=== PATIENT | female | born 1940 | race Caucasian/White ===

== ENCOUNTER 2018-03-06 12:02 | Inpatient (IN) | payer OTHER ==
[2018-03-06] MEDS ORDERED: DIAZEPAM 5 MG TAB PO ONE (12:03)
[2018-03-06] MEDS ORDERED: ASPIRIN EC 325 MG TAB PO ONE (12:03)
[2018-03-06] MEDS ORDERED: FAMOTIDINE 20 MG TAB PO ONE (12:03)
[2018-03-06] MEDS ORDERED: NS 1,000 ML IV ONE (12:03)
[2018-03-06] MEDS ORDERED: diphenhydrAMINE 25 MG CAP PO ONE (12:03)
[2018-03-06 12:33] LABS: PLATELET COUNT 197 10^3/uL (150-400)
[2018-03-06 12:46] LABS: INR 1.09 (0.83-1.16); PROTIME(PATIENT) 14.3 SEC (12.0-15.0)
[2018-03-06] MEDS ORDERED: LIDOCAINE 1% 300 MG/30 ML SDV ONE (13:53)
[2018-03-06] MEDS ORDERED: VERAPAMIL 5 MG/2 ML VIAL ONE (13:53)
[2018-03-06] MEDS ORDERED: IOPAMIDOL (ISOVUE-370) 150 ML BTL IV ONE ×3 (13:53→15:49)
[2018-03-06] MEDS ORDERED: HEPARIN 10,000 UNIT/10 ML MDV (1,000 UNIT/ML) ONE (13:53)
[2018-03-06] MEDS ORDERED: MIDAZOLAM 2 MG/2 ML VIAL ONE ×2 (13:54→15:51)
[2018-03-06] MEDS ORDERED: fentaNYL 100 MCG/2 ML INJ ONE ×2 (13:54→15:51)
--- NOTE | 2018-03-06 14:35 | PDHPUP ---
History & Physical Update H&P update statement: This history and physical update is based on an assessment of the patient which was completed after admission or registration (within 24 hours), but prior to the surgery/procedure. H&P update: H&P reviewed & patient examined, changes noted (abnormal stress test high risk)
--- NOTE | 2018-03-06 14:38 | PDPROPOC ---
Sedation Plan of Care Sedation Plan of Care: vital signs stable, mental status noted, patient educated of risks, benefits, alternatives, patient can tolerate sedation ASA Classification: ASA 3 Planned drugs: fentanyl, midazolam Mallampati Score: Class 3 Mallampati Reference Image: Patient passed 3-3-2 rule?: Yes
--- NOTE | 2018-03-06 14:43 | PDDXCAT ---
Diagnostic Cath Note - . Date: 03/06/18 Clinic Supervisor: Francisco Indication: CCC Class III and IV angina on medical treatment, High-risk criteria on noninvasive testing (choose option below) High-risk criteria on non-invasive testing: high-risk treadmill score (score<=- 11) - Procedure Access: right groin Procedure: left heart catheterization, coronary angiography, left ventriculogram , other (right iliac anriography) - Materials Left Heart Cath size: 5F Left Heart Cath materials: JL3.5 - Findings-Left Heart Catheterization LM: short vessel, There may be seperate ostia for the circumflex/Ramus system and LAD. LAD: only one selective angiographic picture of the LAD. The selective picture revealed a 90% ostial stenosis of the LAD and severe and diffuse calcific disease with 80% stenosis in the mid LAD. CYNTHIA III flow with selective angiography. No dissection or thrombus. LCX: 2.75mm in size. THere is a 50% stenosis from the takeoff of the left coronary cusp. There is severe disease. 90% obstruction from the ostial takeoff at the beta branch bifurcation. There is a calcific 80% obstruction of the left circumflex proximal to the mid level bifurcation. RCA: 2.5mm in size and dominant vessel. Gives rise to the PD and . There is 99% obstruction at the ostial takeoff. There is a second lesion with 80% stenosis. Ramus: 1.5mm in size. There is ostial stenosis near the takeoff from the left coronary cusp. CYNTHIA III flow. EDP: 28mmHg LVEF: 65% Wall motion: Sigmoid shaped septum with probable basal septal hypertrophy of the elderly. There is no evidence of significant mitral regurgitation on pressurized injection with the MEDRAD. No evidence of gradient across the aortic valve. No evidence of aortic stenosis upon pullback across the aortic valve. The pulse pressure in the aorta was extremely high at 104mmHg. There was no evidence of aortic aneurysm or dissection, there was no significant aortic regurgitation. - Findings-Right Heart Catheterization AO: 127/43/77 Estimated blood loss: other (<300ml) Closure method: TR Band Assessment: The patient has crticial three vessel coronary artery disease as detailed above. The EF is preserved at 65%. There is asymmetrical basal septal hypertophy without evidence of out flow track obstruction or a gradient across the aortic valve. There is no significant mitral regurgitation. These findings were discussed with Dr. Charly Case and Dr. Charly Vergara who both agreed that it is most appropriate to procced with urgent bypass surgery which is planned for tomorrow morning. The SIMMONS looks particuarly small but was not selectively injected and there is 80% proximal right common Iliac obstruction on iliac angiography. Plan: Proceed with echocardiogram this evening and fluid resuscitation to try to flush out any contrast from the kidney system. The patient will have bypass surgery tomorrow morning. Intervention: NONE
--- NOTE | 2018-03-06 15:18 | CPEKG ---
Test Reason : OPEN Blood Pressure : / mmHG Vent. Rate : 076 BPM Atrial Rate : 076 BPM P-R Int : 150 ms QRS Dur : 088 ms QT Int : 391 ms P-R-T Axes : 099 072 -18 degrees QTc Int : 440 ms Sinus rhythm Confirmed by Alexandro Mehta ([id number]) on 03/06/2018 3:17:58 PM Referred By: Confirmed By:Alexandro Mehta
--- NOTE | 2018-03-06 17:31 | PDSURGCRDT ---
CardioThoracic Surgery Note - Assessment and Plan (1) Coronary artery disease Plan: I was asked to see this pleasant 78 year old woman following her heart cath today. I met with her briefly and her family as well. She has unstable progressive angina and cath shows critical 3 vessel disease. Plan is for CABG in AM. Risks benefits and alternatives were reviewed and she agrees to proceed. - Objective Objective: Laboratory Results 03/06/18 12:15 03/06/18 12:15
[2018-03-06] MEDS ORDERED: OXYCODONE/APAP 5/325 TAB PO PRN (17:39)
[2018-03-06] MEDS ORDERED: NITROGLYCERIN 0.4 MG BTL SL PRN (17:39)
[2018-03-06] MEDS ORDERED: ONDANSETRON 4 MG/2 ML VIAL IVP PRN (17:39)
[2018-03-06] MEDS ORDERED: ATROPINE SULFATE 1 MG/10 ML SYR IVP PRN (17:39)
[2018-03-06] MEDS ORDERED: NS 1,000 ML IV SCH (17:45)
--- NOTE | 2018-03-06 18:04 | ECHO ---
[email or web address] [address] Main: [phone] Fax: Transthoracic Echocardiogram Name: DEUCE SULLIVAN MR#: [id number] Study Date: 03/06/2018 Study Time: 05:05 PM Date of : 1940 Age: 78 year(s) Height: ( ) Weight: ( ) BSA: Gender: Female Examination: Echo Indication: pre op Image Quality: Adequate Contrast: Requested by: Isra Singh BP: 147 mmHg/62 mmHg Heart Rate: Rhythm: Indication: pre op Procedure Staff Nuisance Animal Damage Control Agent: Olnea Garcia RDCS Reading Physician: Isra Singh MD Requesting Provider: Conclusions: Normal size left ventricle. No LV hypertrophy. Normal global systolic LV function. EF is 62 %. Normal diastolic LV function. Normal size right ventricle. Normal RV function. The left atrium is normal in size. The right atrium is normal in size. The mitral valve is normal in appearance and function. Mild mitral valve regurgitation is present. No mitral stenosis is present. The aortic valve is tri-leaflet. Aortic sclerosis is present. Trivial aortic valve regurgitation. No aortic valve stenosis is present. The tricuspid valve is normal in appearance and function. Mild tricuspid regurgitation is present. The pulmonary artery pressure is normal. Right ventricular systolic pressure measures 15mmHg. The pulmonic valve is normal in appearance and function. Trivial pulmonic valve regurgitation. The aorta is normal. Normal size aortic root measuring 2.2 cm. Normal size ascending aorta measuring 2.1 cm. The IVC is normal sized. No pericardial effusion. No pleural effusion. Supine post cath. No evidence of significant valvular heart disease. Sigmoid shaped septum of the elderly without Patient: DEUCE SULLIVAN Study Date: 03/06/2018 Page 1 of 3 05:05 PM evidence of obstruction. Measurements: Chambers Valvular Assessment AV/MV Valvular Assessment TV/PV Normal Normal Normal Name Value Range Name Value Range Name Value Range Ao Delaney (2D): 2.2 cm (1.4 cm-2.6 AV Vmax: 1.66 m/s (1 m/s-1.7 TR Vmax: 1.62 mm/s ( - ) cm) m/s) TR PGmax: 10 mmHg ( - ) IVSd (2D): 1.0 cm (0.6 cm-1.1 AV maxP mmHg ( - ) syst. PAP: 15 mmHg ( - ) cm) AV meanP mmHg ( - ) PV Vmax: 0.91 m/s (0.6 m/s-0.9 LVDd (2D): 3.6 cm (3.9 cm-5.3 MANE (VTI): 1.2 cm ( - ) m/s) cm) MV E Vmax: 0.52 m/s ( - ) PV PGmax: 3 mmHg ( - ) LVDs (2D): 2.4 cm (2.1 cm-4 MV A Vmax: 0.76 m/s ( - ) cm) MV E/A: 0.68 ( - ) LVPWd (2D): 1.0 cm ( - ) MV PHT: 0.083 s ( - ) LVOTd 1.7 cm 1.7 cm mm MVA (PHT): 2.7 s ( - ) LVEF (2D): 62 (>=54 %) RVDd(2D): 2.1 cm (1.9 cm-3.8 cmmm) Continued Measurements: Chambers Valvular Assessment AV/MV Valvular Assessment TV/PV Name Value Name Value Name Value LADs: 2.3 cm MV DecTime: 264 m/s CVP (est.): 5 mmHg LADs Lon.9 cm MV E' Septal: 0.05 m/s LA Area: 13.0 cm2 MV E/E' Septal: 10.60 LA Volume: 32 ml MV E/E' Lateral: 9.20 RA Area: 12.2 cm2 Additional Vessels Name Value Ao Ascendin.1 cm Findings: Left Ventricle: Normal size left ventricle. No LV hypertrophy. Normal global systolic LV function. EF is 62 %. Normal diastolic LV function. Right Ventricle: Normal size right ventricle. Normal RV function. Left Atrium: The left atrium is normal in size. Right Atrium: The right atrium is normal in size. Mitral Valve: The mitral valve is normal in appearance and function. Mild mitral valve regurgitation is present. No mitral stenosis is present. Aortic Valve: The aortic valve is tri-leaflet. Aortic sclerosis is present. Trivial aortic valve regurgitation. No aortic valve stenosis is present. Tricuspid Valve: The tricuspid valve is normal in appearance and function. Mild tricuspid regurgitation is present. The pulmonary artery pressure is normal. Right ventricular systolic pressure measures 15mmHg. Pulmonic Valve: The pulmonic valve is normal in appearance and function. Trivial pulmonic valve regurgitation. Aorta: The aorta is normal. Normal size aortic root measuring 2.2 cm. Normal size ascending aorta measuring 2.1 cm. IVC: Patient: DEUCE SULLIVAN Study Date: 03/06/2018 Page 2 of 3 05:05 PM The IVC is normal sized. Pericardium: No pericardial effusion. No pleural effusion. Exam Comments: Supine post cath. (No Signature Object) Patient: DEUCE SULLIVAN Study Date: 03/06/2018 Page 3 of 3 05:05 PM [id number]
[2018-03-06] MEDS ORDERED: CHLORHEXIDINE GLUC HIBICLENS 118 ML BTL TP SCH (21:00)
[2018-03-06] MEDS: SENNOSIDES/DOCUSATE SODIUM TAB PO SCH (22:10)
[2018-03-06] MEDS: ATORVASTATIN CALCIUM 10 MG TAB PO SCH (22:11)
[2018-03-06] MEDS: ASPIRIN 81 MG CHEWABLE TAB PO SCH (22:11)
[2018-03-06] MEDS: MUPIROCIN 2% 22 GM OINT NS SCH (22:16)
[2018-03-07] MEDS: HYDROCODONE/APAP 5/325 TAB PO PRN (04:27)
[2018-03-07] MEDS: LEVOTHYROXINE 88 MCG TAB PO SCH (04:28)
[2018-03-07] MEDS ORDERED: niCARdipine/NACL 200 ML IV ONE (06:00)
[2018-03-07] MEDS ORDERED: DOBUTamine/DEXTROSE 250 ML IV ONE (06:00)
[2018-03-07] MEDS ORDERED: INSULIN REGULAR HUMAN 100 UNIT in NS 100 ML IV ONE (06:00)
[2018-03-07] MEDS ORDERED: VERAPAMIL 5 MG, NITROGLYCERIN 2.5 MG, HEPARIN 500 UNIT, SODIUM BICARBONATE 0.2 MEQ in L... MISC ONE (06:00)
[2018-03-07] MEDS ORDERED: AMINOCAPROIC ACID 5 GM/20 ML VIAL IV ONE (06:00)
[2018-03-07] MEDS ORDERED: CARDIOPLEGIC SOLUTION 1,052.8 ML PF ONE (06:00)
[2018-03-07] MEDS ORDERED: ceFAZolin 2 GM/DEXTROSE 100 ML IV ONE (06:00)
[2018-03-07] MEDS ORDERED: PHENYLEPHRINE HCL 50 MG in NS 250 ML IV ONE (06:00)
[2018-03-07] MEDS ORDERED: MANNITOL 25% 12.5 GM/50 ML VIAL IVP ONE (06:00)
[2018-03-07] MEDS ORDERED: CITRATE DEXTROSE SOLN 500 ML BAG MISC ONE (06:00)
[2018-03-07] MEDS ORDERED: LR 1,000 ML IV ONE (06:09)
--- NOTE | 2018-03-07 06:10 | PDMN ---
Medical Necessity Medical necessity: MCG: S290 CABG ( pend) 4 days
[2018-03-07] MEDS ORDERED: PROTAMINE SULFATE 50 MG/5 ML VIAL IVP ONE (06:28)
[2018-03-07] MEDS ORDERED: MILRINONE/DEXTROSE/100 ML BAG IV ONE (06:28)
[2018-03-07] MEDS ORDERED: CALCIUM CHLORIDE 1 GM/10 ML INJ ONE ×3 (06:28→06:30)
[2018-03-07] MEDS ORDERED: HEPARIN 10,000 UNIT/10 ML MDV (1,000 UNIT/ML) ONE ×2 (06:29→06:31)
[2018-03-07] MEDS ORDERED: DOPamine/DEXTROSE 400 MG/250 ML BAG IV ONE ×2 (06:29→13:07)
[2018-03-07] MEDS ORDERED: AMIODARONE HCL 150 MG/3 ML VIAL ONE ×2 (06:29→06:31)
[2018-03-07] MEDS ORDERED: niCARdipine/NACL/200 ML BAG IV ONE (06:29)
[2018-03-07] MEDS ORDERED: NA BICARBONATE 50 MEQ/50 ML VIAL ONE (06:29)
[2018-03-07] MEDS ORDERED: LIDOCAINE 2% 100 MG/5 ML SYR ONE ×2 (06:30→07:27)
[2018-03-07] MEDS ORDERED: ALBUMIN 5% 250 ML BOTTLE IV ONE ×2 (06:30→10:43)
[2018-03-07] MEDS ORDERED: ADENOSINE 6 MG/2 ML VIAL ONE (06:30)
[2018-03-07] MEDS ORDERED: NITROGLYCERIN/D5W 50 MG/250 ML BOTTLE IV ONE (06:30)
[2018-03-07] MEDS ORDERED: ceFAZolin 1 GM VIAL ONE (06:30)
[2018-03-07] MEDS ORDERED: methylPREDNISolone SOD SUCC 1 GM/8 ML VIAL ONE (06:31)
[2018-03-07] MEDS ORDERED: MAGNESIUM SULFATE 1 GM/2 ML VIAL ONE (06:31)
[2018-03-07] MEDS ORDERED: CITRATE DEXTROSE SOLN 500 ML BAG ONE (06:31)
[2018-03-07] MEDS: MUPIROCIN 2% 22 GM OINT NS SCH ×2 (06:39→21:32)
[2018-03-07] MEDS ORDERED: MIDAZOLAM 2 MG/2 ML VIAL IVP ONE (06:53)
[2018-03-07] MEDS ORDERED: PAPAVERINE HCL 60 MG/2 ML SDV ONE (06:55)
--- NOTE | 2018-03-07 07:01 | PDANEPAE ---
ANE History of Present Illness 3v CAD s/f CABG ANE Past Medical History - Cardiovascular History Hx Coronary Artery / Peripheral Vascular Disease: Yes - Pulmonary History Hx Oxygen in Use at Home: No Hx Sleep Apnea: No Sleep Apnea Screening Result - Last Documented: Negative - Endocrine History Hx Diabetes: No ANE Review of Systems Review of Systems: - Exercise capacity Exercise capacity: >=4 METS ANE Patient History - Allergies Allergies/Adverse Reactions: No Known Allergies Allergy (Verified 03/06/18 13:22) - Home Medications Home medications: home medication list seen and reviewed Home Medications: Aspirin [Aspirin 81mg (*)] 162 mg PO HS 03/06/18 [Last Taken 03/05/18] Atorvastatin Calcium [Lipitor 10 mg (*)] 10 mg PO HS 03/06/18 [Last Taken ] Levothyroxine [Synthroid 88 mcg (*)] 88 mcg PO DAILY06 03/06/18 [Last Taken ] Tetrahydrozoline 0.05% [Visine (*)] 1 drop EACHEYE DAILY 03/06/18 [Last Taken Unknown] - NPO status NPO Status: no food or drink >8 hours NPO Since - Liquids (Date): 03/07/18 NPO Since - Liquids (Time): 00:00 NPO Since - Solids (Date): 03/07/18 NPO Since - Solids (Time): 00:00 - Anes Hx Anes Hx: no prior problems - Smoking Hx Smoking Status: Never smoked - Alcohol Use Alcohol Use: None ANE Labs/Vital Signs - Labs Result Diagrams: 03/06/18 12:15 03/07/18 04:30 - Vital Signs Blood Pressure: 130/47 Heart Rate: 69 Respiratory Rate: 14 O2 Sat (%): 94 Height: 152.4 cm Weight: 53.479 kg ANE Physical Exam - Airway Neck exam: FROM Mallampati Score: Class 2 Mouth exam: normal dental/mouth exam - Pulmonary Pulmonary: no respiratory distress - Cardiovascular Cardiovascular: regular rate and rhythym - ASA Status ASA Status: III ANE Anesthesia Plan Anesthesia Plan: general endotracheal anesthesia Lines/Monitors: arterial line, central line, JESUS ALBERTO
[2018-03-07] MEDS ORDERED: MIDAZOLAM 2 MG/2 ML VIAL ONE ×2 (07:07→07:21)
[2018-03-07] MEDS ORDERED: ROCURONIUM 100 MG/10 ML VIAL ONE (07:21)
[2018-03-07] MEDS ORDERED: fentaNYL 250 MCG/5 ML INJ ONE (07:21)
[2018-03-07] MEDS ORDERED: REMIFENTANIL HCL 1 MG VIAL ONE (07:21)
[2018-03-07] MEDS ORDERED: PROPOFOL/EMULSION 500 MG/50 ML BOTTLE IV ONE (07:21)
[2018-03-07] MEDS ORDERED: PHENYLEPHRINE HCL 100 MCG/ML SYR ONE (07:22)
[2018-03-07] MEDS ORDERED: DEXAMETHASONE 4 MG/ML VIAL ONE ×2 (07:22)
[2018-03-07] MEDS ORDERED: ONDANSETRON 4 MG/2 ML VIAL ONE (07:22)
[2018-03-07] MEDS ORDERED: ePHEDrine SULFATE 25 MG/5 ML SYR ONE (07:22)
--- NOTE | 2018-03-07 12:22 | ASMTCMCOM ---
CM Note CM Note Notes: 03/07/2018 Case Management Note Pt admitted after cath procedure for planned open heart procedure today. Pt transferred from 2W to ICU after surgery. Case Management d/c needs are to be determined. Case Management will follow. Date Signed: 03/07/2018 12:21 PM Electronically Signed By:Sindi Velasquez RN
[2018-03-07] MEDS ORDERED: POLYETHYLENE GLYCOL 3350 17 GM PKT PO PRN (12:32)
[2018-03-07] MEDS ORDERED: ACETAMINOPHEN 650 MG SUPP PR PRN (12:32)
[2018-03-07] MEDS ORDERED: SODIUM CL NASAL 45 ML BTL EACHNARE PRN (12:32)
[2018-03-07] MEDS ORDERED: PANTOPRAZOLE SODIUM 40 MG VIAL IVP ONE (12:32)
[2018-03-07] MEDS ORDERED: MAGNESIUM HYDROXIDE 30 ML UDCUP PO PRN (12:32)
[2018-03-07] MEDS ORDERED: BISACODYL 10 MG SUPP PR PRN (12:32)
[2018-03-07] MEDS ORDERED: CEPACOL LOZENGE PO PRN (12:32)
[2018-03-07] MEDS ORDERED: ALBUMIN 5% 250 ML IV PRN (12:32)
[2018-03-07] MEDS ORDERED: D50W 25 GM/50 ML SYR IVP PRN (12:32)
[2018-03-07] MEDS ORDERED: ACETAMINOPHEN 325 MG TAB PO PRN (12:32)
[2018-03-07] MEDS ORDERED: MEPERIDINE 25 MG/0.5 ML AMP IVP PRN (12:32)
[2018-03-07] MEDS ORDERED: LACTULOSE 20 GM/30 ML UDCUP PO PRN (12:32)
[2018-03-07] MEDS ORDERED: NS 1,000 ML IV SCH (12:45)
[2018-03-07] MEDS ORDERED: INSULIN REGULAR HUMAN 100 UNIT in NS 100 ML IV SCH (13:00)
[2018-03-07] MEDS: TETRAHYDROZOLINE 0.05% 15 ML OPHT.BTL EACHEYE SCH (13:33)
[2018-03-07] MEDS: ceFAZolin 2 GM/DEXTROSE 100 ML IV SCH ×2 (13:38→21:34)
[2018-03-07] MEDS: POTASSIUM Cl (KCl) 50 ML IV PRN ×3 (15:12→17:35)
--- NOTE | 2018-03-07 16:42 | CPEKG ---
Test Reason : OPEN Blood Pressure : / mmHG Vent. Rate : 059 BPM Atrial Rate : 059 BPM P-R Int : 178 ms QRS Dur : 091 ms QT Int : 513 ms P-R-T Axes : 079 071 -11 degrees QTc Int : 509 ms Sinus rhythm Borderline T abnormalities, inferior leads Borderline ST elevation, inferior leads Prolonged QT interval Confirmed by Alexandro Mehta ([id number]) on 03/07/2018 4:42:28 PM Referred By: Confirmed By:Alexandro Mehta
--- NOTE | 2018-03-07 17:11 | GCON ---
PULMONARY/CRITICAL CARE CONSULTATION DATE OF CONSULTATION: 03/07/2018 REFERRING PHYSICIAN: Shahid Vergara MD REASON FOR CONSULTATION: Evaluation and management of anemia, hyperglycemia and hypernatremia. HISTORY OF PRESENT ILLNESS: The patient is a 78-year-old woman who had some stable chronic chest tig htness, which prompted a treadmill test which was abnormal. This led to a heart catheterization, whi ch showed critical 3 vessel disease with an ejection fraction of 65%. She was referred to Dr. Vergara , who performed 3 vessel coronary artery bypass grafting today. Her intraoperative course was unrema rkable. She was returned to the intensive care unit intubated. PAST MEDICAL HISTORY: Significant for hypothyroidism, osteoporosis, vitiligo and bilateral carotid a rtery calcification. MEDICATIONS: At the time of admission include atorvastatin and levothyroxine. ALLERGIES: None. SOCIAL HISTORY: The patient has never smoked. She is . FAMILY HISTORY: Positive for colon cancer. REVIEW OF SYSTEMS: Unobtainable, as the patient is still intubated. PHYSICAL EXAMINATION: GENERAL: The patient is intubated and sedated. She is minimally arousable. VITAL SIGNS: Blood pressure is 137/40 with a heart rate of 69. She is afebrile. Oxygen saturations are 100% on 40% oxygen. HEENT: Normocephalic and atraumatic. No icterus. NECK: No JVD. Trachea is midline. CHEST: Clear to auscultation. CARDIAC: Regular rate and rhythm without murmur. ABDO MEN: Soft, nontender. Bowel sounds are present. EXTREMITIES: No clubbing, cyanosis, or edema. LABORATORY: Sodium is 149, potassium is 3.2, glucose is 136, down from 154. Hemoglobin is 9.5, down from 13.5 preoperatively. INR is 1.1. An arterial blood gas shows a pH of 7.36 with a pO2 of 102, a CO2 of 43 and a bicarbonate of 25 on 50% oxygen. A chest x-ray shows mild pulmonary edema. Endotr acheal tube is appropriately placed. Images reviewed by me. ASSESSMENT: 1. Status post coronary artery bypass graft x3 for exertional angina. The patient has a preserved l eft ventricular ejection fraction. Her intraoperative course was unremarkable. 2. Anemia. The patient has postoperative anemia as expected. Likely related to dilution and intrao perative blood loss. She does not have any signs of significant active bleeding currently. 3. Hypernatremia. This is new since surgery since her preoperative labs this morning and likely rel ated to fluid replacement intraoperatively. 4. Hypokalemia. This is mild. 5. Hyperglycemia. The patient has mild hyperglycemia. She does not have a history of diabetes. RECOMMENDATIONS: 1. Follow hemoglobin and follow for signs of active bleeding. 2. Replace potassium. 3. Follow sodium. 4. IV insulin for hyperglycemia to try to optimize glucose control. 5. Extubate once the patient is more awake and alert and able to protect her airway. /[id number]/MODL
[2018-03-07] MEDS ORDERED: ALBUMIN 5% 250 ML IV ONE (17:30)
[2018-03-07] MEDS: fentaNYL 100 MCG/2 ML INJ IVP PRN ×2 (19:10→20:13)
[2018-03-07] MEDS: DEXMEDETOMIDINE HCL 400 MCG in NS 100 ML IV SCH (21:27)
[2018-03-07] MEDS: SENNOSIDES/DOCUSATE SODIUM TAB PO SCH (22:17)
[2018-03-08] MEDS: DEXMEDETOMIDINE HCL 400 MCG in NS 100 ML IV SCH (02:09)
[2018-03-08] MEDS: ceFAZolin 2 GM/DEXTROSE 100 ML IV SCH ×3 (05:00→22:50)
[2018-03-08 05:19] LABS: PLATELET COUNT 68 10^3/uL (150-400)
[2018-03-08] MEDS: ONDANSETRON 4 MG/2 ML VIAL IVP PRN (06:25)
[2018-03-08] MEDS: METOCLOPRAMIDE 10 MG/2 ML VIAL IVP PRN (06:25)
--- NOTE | 2018-03-08 07:32 | SOAPPROG ---
SOAP Progress Note Assessment/Plan: Assessment/Plan: POD #1: CABGx3 (SIMMONS-LAD, SVG-OM1, SVG-PDA), EVH bilateral legs, open GSV right thigh CAD s/p CABGx3: dopamine @ 2 to titrate MAP>65, continue amiodarone, start BB when weaned from dopa Acute hypoxic respiratory insufficiency: required multiple veaning attempts overnight, extubated 03/08 Acute blood loss anemia with thrombocytopenia: 8.6/25.2, as expected, monitor Leukocytosis: 12.4, as expected, monitor Hyperchloremic hypernatremia: Na 149, Cl 118, fluid restriction, continue daily labs & monitor Aortic sclerosis: mild per ECHO, monitor Bilateral carotid artery stenosis: avoid hypotension Hypothyroidism: on Synthroid, continue Disposition: expect transfer out of ICU tomorrow, wean off dopamine today, fluid restriction, recheck BMP at 1400, NPO until VSS DVT prophylaxis: SCDs, no heparin Arterial Line: yes, need for ongoing management CVL: yes, need for ongoing management Chest tubes: 60/240/120 - keep in for now Wires: keep in for now 03/08/18 08:16 Subjective: Extubated at 0600 today after multiple attempts overnight. Still requiring dopamine @ 2. She feels "fair" with some back aching. Left chest tube site oozed overnight. Objective: General: NAD, sitting upright HEENT: CVL IJ, dry MM Resp: nasal cannula oxygen, weak cough, no wheezes Cardiac: pericardial rub, NSR, no m/g, no edema GI: soft, nt, nd : medellin Extremities: bilateral neena wraps Incisions: sternum - clean, dry, intact; right thigh - clean, dry, intact Chest tubes - 60/240/120 red UOP - 895/515 Vital Signs Temp Pulse Resp BP Pulse Ox 36.8 C 83 18 141/37 H 99 03/08/18 07:00 03/08/18 07:00 03/08/18 07:00 03/08/18 07:00 03/08/18 07:00 Laboratory Results 03/08/18 05:05 03/08/18 05:05 03/07/18 03/08/18 03/09/18 05:59 05:59 05:59 Intake Total 1150 2316.8 Output Total 1625 1830 Balance -475 486.8 PT 14.3 SEC (12.0-15.0) 03/06/18 12:15 INR 1.09 (0.83-1.16) 03/06/18 12:15 ICD10 Worksheet Patient Problems: Problems Problem Status Onset Acute blood loss anemia Acute Coronary artery disease Acute S/P CABG x 3 Acute ~03/07/18
[2018-03-08] MEDS: LEVOTHYROXINE 88 MCG TAB PO SCH (07:38)
[2018-03-08] MEDS: MUPIROCIN 2% 22 GM OINT NS SCH ×2 (08:35→21:35)
[2018-03-08] MEDS ORDERED: SENNOSIDES/DOCUSATE SODIUM TAB PO PRN (09:00)
[2018-03-08] MEDS: HYDROCODONE/APAP 5/325 TAB PO PRN ×4 (09:53→22:36)
[2018-03-08] MEDS: PANTOPRAZOLE SODIUM 40 MG TAB PO SCH (09:54)
[2018-03-08] MEDS: TETRAHYDROZOLINE 0.05% 15 ML OPHT.BTL EACHEYE SCH (11:39)
--- NOTE | 2018-03-08 13:06 | POSTANESTH ---
Post Anesthetic Evaluation Cardiovascular Status: Normal, Stable, Similar to Pre-Op Cond Respiratory Status: Similar to Pre-op Cond., Tx Decrease in SpO2 Level of Consciousness/Mental Status: Can Participate in Eval, Mildly Sleepy, Arousable Pain Control: Adequate, Prn Tx Ordered Nausea/Vomiting Control: Adequate, Prn Tx Ordered Complications Possibly Related to Anesthesia: None Noted
[2018-03-08] MEDS: traMADol 50 MG TAB PO PRN ×2 (13:12→20:20)
--- NOTE | 2018-03-08 13:13 | ASMTCMCOM ---
CM Note CM Note Notes: Patient is POD #1 CABG x3. She is stable and recovering well. PT/OT are recommending home independent or home w home care. CM will assess closer to d/c date. Patient lives with daughter and has many supportive family members. I ordered a hospital bed from [facility] (fax [phone]); the hard copy of the order is in patient's chart. Case Management will follow. Date Signed: 03/08/2018 12:48 PM Electronically Signed By:Fide Oviedo RN
--- NOTE | 2018-03-08 15:30 | PDINTPN ---
Pigskin Trimmer Progress Note Assessment/Plan: Assessment: S/P CABG x 3 Anemia: Likely due to acute perioperative bleeding. Stable over the last 24 hr. Weaned off dopamine Hypernatremia: Hyperchloremic. New onset after surgery. Improved a bit from this morning Hyperglycemia: Improved with insulin Plan: Follow hemoglobin. Increase activity. Advance diet as tolerated 03/08/18 15:42 Subjective: Still feels fairly weak, was able sitting in a chair. Poor appetite. Pain fairly well controlled. Objective: Vital Signs Temp Pulse Resp BP Pulse Ox 36.8 C 78 18 122/38 H 98 03/08/18 07:00 03/08/18 11:00 03/08/18 11:00 03/08/18 11:00 03/08/18 11:00 Laboratory Results 03/08/18 05:05 03/08/18 13:00 03/07/18 03/08/18 03/09/18 05:59 05:59 05:59 Intake Total 1150 2316.8 240 Output Total 1625 1830 315 Balance -475 486.8 -75 PT 14.3 SEC (12.0-15.0) 03/06/18 12:15 INR 1.09 (0.83-1.16) 03/06/18 12:15 Physical Exam - Physical Exam General Appearance: alert, no apparent distress EENT: normal ENT inspection Neck: normal inspection Respiratory: lungs clear, normal breath sounds Cardiac/Chest: regular rate, rhythm, edema, friction rub Abdomen: normal bowel sounds, non-tender Skin: normal color, warm/dry Extremities: normal inspection Neuro/Psych: alert, normal mood/affect, oriented x 3 ICD10 Worksheet Patient Problems: Problems Problem Status Onset Acute blood loss anemia Acute Coronary artery disease Acute S/P CABG x 3 Acute ~03/07/18
[2018-03-08] MEDS: LIDOCAINE 4%/MENTHOL 1% PATCH TD SCH (16:17)
[2018-03-08] MEDS: METOPROLOL TARTRATE 25 MG TAB PO SCH (20:20)
[2018-03-08] MEDS ORDERED: ASPIRIN 81 MG CHEWABLE TAB ONE ×2 (20:23→20:26)
[2018-03-08] MEDS: PATCH REMOVAL 1 EA PATCH TD SCH (21:35)
[2018-03-08] MEDS: ASPIRIN 81 MG CHEWABLE TAB PO SCH (22:40)
[2018-03-09] MEDS ORDERED: AMIODARONE A.FIB-LOAD DOSE(ORDER 1/3) PREMIX IV ONE (00:30)
[2018-03-09] MEDS ORDERED: AMIODARONE A.FIB-6HR INFSN (ORDER 2/3) PREMIX IV ONE (00:30)
[2018-03-09] MEDS: traMADol 50 MG TAB PO PRN ×2 (02:22→22:05)
[2018-03-09] MEDS: ONDANSETRON 4 MG/2 ML VIAL IVP PRN ×2 (04:59→22:25)
[2018-03-09 05:36] LABS: PLATELET COUNT 101 10^3/uL (150-400)
[2018-03-09] MEDS ORDERED: D5W 1,000 ML IV SCH (06:15)
[2018-03-09] MEDS ORDERED: AMIODARONE A.FIB-18HR INFSN (ORDER 3/3) IV ONE (06:30)
[2018-03-09] MEDS: LEVOTHYROXINE 88 MCG TAB PO SCH (07:13)
[2018-03-09] MEDS: HYDROCODONE/APAP 5/325 TAB PO PRN (07:14)
--- NOTE | 2018-03-09 07:27 | SOAPPROG ---
SOAP Progress Note Assessment/Plan: Assessment/Plan: POD #2: CABGx3 (SIMMONS-LAD, SVG-OM1, SVG-PDA), EVH bilateral legs, open GSV right thigh CAD s/p CABGx3: cont lopressor 12.5, ASA 162, and home atorvastatin Post-operative atrial fibrillation - amiodarone protocol started 03/09 last night with conversion to NSR after bolus, cont protocol Prerenal oliguria : Cr 0.7 --> 1.1; BUN 27, 515/155/0, pre-op wt 53.5, post-op wt 57.2, needs hydration Post-operative back pain- cont PRN tramadol, tylenol, tramadol, and lido patch, encourage ambulation Acute hypoxic respiratory insufficiency: required multiple veaning attempts, extubated 03/08, resolved Acute blood loss anemia with thrombocytopenia: 8.5/26.8, as expected, monitor Leukocytosis: 21 (12.4) secondary to surgery, afebrile, repeat CBC in AM Hyperchloremic hypernatremia: normalizing, Na 148, Cl 112, 2 L fluid restriction , continue daily labs & monitor Aortic sclerosis: mild per ECHO, monitor Bilateral carotid artery stenosis: avoid hypotension Hypothyroidism: on Synthroid, continue Disposition: Finish Amiodarone protocol. Amiodarone 200 mg PO BID to begin tomorrow Repeat CBC, BMP tomorrow. Repeat BMP 1400 today. Change D5W -> NS .45 @ 100 cc/hr PT/OT to eval and treat DVT prophylaxis: SCDs, no heparin Arterial Line: removed at transfer CVL: yes, need for ongoing management, labs Chest tubes: removed today Wires: keep in for now given patients arrhythmias Subjective: Episode of atrial fibrillation with RVR in middle of the night. Responded to amiodarone bolus and now in NSR. Low OUP overnight. Bladder scan minimal. Slight Cr bump to 1.1 from 27. BUN 27. Objective: Vital Signs Temp Pulse Resp BP Pulse Ox 37.2 C 101 H 18 100/64 92 03/08/18 22:45 03/09/18 00:39 03/09/18 00:00 03/09/18 00:39 03/09/18 00:39 Laboratory Results 03/09/18 05:05 03/09/18 05:05 03/08/18 03/09/1818 05:59 05:59 05:59 Intake Total 2316.8 590 475 Output Total 1830 705 Balance 486.8 -115 475 PT 14.3 SEC (12.0-15.0) 03/06/18 12:15 INR 1.09 (0.83-1.16) 03/06/18 12:15 General: NAD, sitting upright, somnolent HEENT: CVL IJ, dry MM Resp: nasal cannula oxygen at 1L , weak cough Cardiac: ST 101, no m/r/g, no edema GI: soft, nt, nd : no medellin Incisions: sternum - clean, dry, intact; right thigh - clean, dry, intact Chest tubes: 190/100 serosang no airleak UOP: 515/155/0 ICD10 Worksheet Patient Problems: Problems Problem Status Onset Acute blood loss anemia Acute Coronary artery disease Acute Paroxysmal atrial fibrillation Acute S/P CABG x 3 Acute ~03/07/18 Carotid artery disease Chronic
[2018-03-09] MEDS ORDERED: SENNOSIDES/DOCUSATE SODIUM TAB PO SCH (09:00)
[2018-03-09] MEDS: LIDOCAINE 4%/MENTHOL 1% PATCH TD SCH (09:32)
[2018-03-09] MEDS: TETRAHYDROZOLINE 0.05% 15 ML OPHT.BTL EACHEYE SCH (09:34)
[2018-03-09] MEDS: MUPIROCIN 2% 22 GM OINT NS SCH (09:34)
[2018-03-09] MEDS: PANTOPRAZOLE SODIUM 40 MG TAB PO SCH (09:34)
[2018-03-09] MEDS: METOPROLOL TARTRATE 25 MG TAB PO SCH ×2 (09:35→22:14)
[2018-03-09] MEDS ORDERED: HYDROCODONE/APAP 5/325 TAB PO PRN (09:56)
[2018-03-09] MEDS: 1/2 NS 1,000 ML IV SCH ×2 (14:11→22:55)
[2018-03-09] MEDS: ATORVASTATIN CALCIUM 10 MG TAB PO SCH (22:05)
[2018-03-09] MEDS: ASPIRIN 81 MG CHEWABLE TAB PO SCH (22:14)
[2018-03-09] MEDS: PATCH REMOVAL 1 EA PATCH TD SCH (22:56)
[2018-03-10] MEDS: LEVOTHYROXINE 88 MCG TAB PO SCH (06:09)
[2018-03-10] MEDS: ONDANSETRON DISINTEGRATING 4 MG TAB PO PRN ×3 (06:09→19:51)
--- NOTE | 2018-03-10 08:44 | SOAPPROG ---
SOAP Progress Note Assessment/Plan: Assessment/Plan: POD #3: CABGx3 (SIMMONS-LAD, SVG-OM1, SVG-PDA), EVH bilateral legs, open GSV right thigh CAD s/p CABGx3: cont lopressor 12.5, ASA 162, and home atorvastatin Post-operative atrial fibrillation - NSR, IV Amio completed, starting PO Amio protocol Prerenal oliguria : improved, Cr 1.1->1 BUN 27->32, pre-op wt 53.5, post-op wt 59.2, stop IVF (2.8 L+ yesterday), UOP improving 375 overnight Post-operative back pain- improved, cont PRN tramadol, tylenol, tramadol, and lido patch, encourage ambulation Acute hypoxic respiratory insufficiency: resolved, required multiple veaning attempts, extubated 03/08 Acute blood loss anemia with thrombocytopenia: stable, hematocrit dropped from 26.8 to 22.9, dilutional given patient's aggressive IVF yesterday, monitor Leukocytosis: improved, 12.92 today, 21 yesterday, secondary to surgery, afebrile Hyperchloremic hypernatremia: resolved Aortic sclerosis: mild per ECHO, monitor Bilateral carotid artery stenosis: avoid hypotension Hypothyroidism: on Synthroid, continue Disposition: PO Amiodarone 200 mg PO BID per protocol Repeat CBC, BMP tomorrow Stop IVF Expect discharge Sunday with services [facility] vs. SNF DVT prophylaxis: SCDs, no heparin Arterial Line: removed at transfer CVL: yes, need for ongoing management, labs Chest tubes: removed Wires: keep in for now given patients arrhythmias, expect removal tomorrow Subjective: Slept well last night. Objective: Vital Signs Temp Pulse Resp BP Pulse Ox 36.9 C 76 16 143/67 H 98 03/10/18 04:00 03/10/18 04:00 03/10/18 04:00 03/10/18 04:00 03/10/18 04:00 Laboratory Results 03/10/18 06:20 03/10/18 06:20 03/09/18 03/10/18 03/11/18 05:59 05:59 05:59 Intake Total 590 3481 Output Total 705 590 Balance -115 2891 PT 14.3 SEC (12.0-15.0) 03/06/18 12:15 INR 1.09 (0.83-1.16) 03/06/18 12:15 General: NAD, sitting upright HEENT: CVL IJ, MMM Cardiac: NSR, no m/r/g, no edema GI: soft, nt, nd : no medellin Incisions: sternum - c/d/i; right thigh - c/d/i Chest tubes: out Wires: V wires UOP: 155/0/375 ICD10 Worksheet Patient Problems: Problems Problem Status Onset Acute blood loss anemia Acute Coronary artery disease Acute Paroxysmal atrial fibrillation Acute S/P CABG x 3 Acute ~03/07/18 Carotid artery disease Chronic
[2018-03-10] MEDS: LIDOCAINE 4%/MENTHOL 1% PATCH TD SCH (09:24)
[2018-03-10] MEDS: PANTOPRAZOLE SODIUM 40 MG TAB PO SCH (09:25)
[2018-03-10] MEDS: AMIODARONE HCL 200 MG TAB PO SCH ×2 (09:25→20:12)
[2018-03-10] MEDS: METOPROLOL TARTRATE 25 MG TAB PO SCH ×2 (09:25→21:06)
[2018-03-10] MEDS: TETRAHYDROZOLINE 0.05% 15 ML OPHT.BTL EACHEYE SCH (09:50)
[2018-03-10] MEDS: METOCLOPRAMIDE 10 MG/2 ML VIAL IVP PRN (10:28)
--- NOTE | 2018-03-10 11:13 | ASMTCMCOM ---
CM Note CM Note Notes: I met with patient and brother to discuss d/c planning. The plan is currently TBD between HC and SNF. The family does not want to tell me their choices yet; there is an WAREHOUSE ASSISTANT in the family who they'd like to consult with first. I did order a hospital bed from [facility] last week; they will contact the family tomorrow with information. Per cardiothoracic surgery, patient may d/c Monday 03/12. Case Management will follow. Date Signed: 03/10/2018 11:13 AM Electronically Signed By:Fide Oviedo RN
[2018-03-10] MEDS: ASPIRIN 81 MG CHEWABLE TAB PO SCH (20:14)
[2018-03-10] MEDS: ATORVASTATIN CALCIUM 10 MG TAB PO SCH (20:14)
[2018-03-11] MEDS: PATCH REMOVAL 1 EA PATCH TD SCH ×2 (06:24→22:00)
[2018-03-11] MEDS: LEVOTHYROXINE 88 MCG TAB PO SCH (07:05)
[2018-03-11] MEDS: ONDANSETRON DISINTEGRATING 4 MG TAB PO PRN (07:47)
[2018-03-11] MEDS ORDERED: FUROSEMIDE 20 MG/2 ML VIAL IVP ONE (08:10)
[2018-03-11] MEDS: traMADol 50 MG TAB PO PRN (08:44)
[2018-03-11] MEDS: PANTOPRAZOLE SODIUM 40 MG TAB PO SCH (08:45)
--- NOTE | 2018-03-11 08:58 | SOAPPROG ---
SOAP Progress Note Assessment/Plan: Assessment/Plan: POD #3: CABGx3 (SIMMONS-LAD, SVG-OM1, SVG-PDA), EVH bilateral legs, open GSV right thigh CAD s/p CABGx3: stable, increase lopressor to 25, ASA 162, hold atorvastatin 2/ 2 elevated LFTs, v-wires removed today Post-operative atrial fibrillation - resolved, NSR, IV Amio completed, amio PO started but will be discontinued today Prerenal oliguria : improved, Cr 1->0.9 BUN 32->33, pre-op wt 53.5, post-op wt 58, UOP 350/600, lasix x1 today Post-operative back pain- improved, cont PRN tylenol, tramadol, and lido patch, encourage ambulation Acute hypoxic respiratory insufficiency: resolved, required multiple veaning attempts, extubated 03/08 Acute blood loss anemia with thrombocytopenia: stable, 1 prbc's yesterday with appropriate hct response 22.9-29.4 Leukocytosis: improved, secondary to surgery, afebrile Hyperchloremic hypernatremia: resolved Aortic sclerosis: mild per ECHO, monitor Bilateral carotid artery stenosis: avoid hypotension Hypothyroidism: on Synthroid, continue Elevated LFTs - multifactorial with hepatic congestion and amiodarone. Stop amiodarone. Contributing to N/V. Post-operative right pleural effusion - large, US thoracentesis ordered for today Disposition: Lopressor 25 mg Stop amiodarone Change from clears to full liquid diet + ensure nourishment Remove CVL and change to peripheral US right thoracentesis today Lasix 20 mg IV once today Stop [place] - extremely opioid naive per patient's sister, will increase tramadol range to 50-100 Possible discharge Sunday SNF DVT prophylaxis: SCDs Arterial Line: removed CVL: removed today Chest tubes: removed Wires: removed Subjective: Doing well today. Pain at right open GSV site. Patient and sister agreeable for plan to SNF. Objective: Vital Signs Temp Pulse Resp BP Pulse Ox 36.8 C 79 16 166/65 H 99 03/11/18 07:29 03/11/18 07:29 03/11/18 07:29 03/11/18 07:29 03/11/18 07:29 Laboratory Results 03/11/18 05:17 03/11/18 05:17 03/10/18 03/11/18 03/12/18 05:59 05:59 05:59 Intake Total 3481 600 Output Total 590 950 Balance 2891 -350 PT 14.3 SEC (12.0-15.0) 03/06/18 12:15 INR 1.09 (0.83-1.16) 03/06/18 12:15 General: NAD, sitting upright HEENT: CVL RIJ, MMM Cardiac: NSR, no m/r/g, no edema GI: soft, nt, nd : no medellin Incisions: sternum - c/d/i; right thigh - c/d/i - ecchymotic bilateral Chest tubes: out Wires: out UOP: 350/600 ICD10 Worksheet Patient Problems: Problems Problem Status Onset Acute blood loss anemia Acute Coronary artery disease Acute Paroxysmal atrial fibrillation Acute S/P CABG x 3 Acute ~03/07/18 Carotid artery disease Chronic
[2018-03-11] MEDS ORDERED: METOPROLOL TARTRATE 25 MG TAB PO SCH (09:00)
[2018-03-11] MEDS ORDERED: traMADol 50 MG TAB PO PRN (09:10)
[2018-03-11] MEDS: LIDOCAINE 4%/MENTHOL 1% PATCH TD SCH (09:15)
[2018-03-11] MEDS ORDERED: LIDOCAINE 1% 300 MG/30 ML SDV ONE (09:59)
--- NOTE | 2018-03-11 11:02 | PDRADPN ---
Radiology Procedure Note Date of Procedure: 03/11/18 Radiologist: Froilan Ordonez Pre-op Diagnosis: right pleural effusion Post-op Diagnosis: right pleural effusion Indication: Post op Procedure: Right thoracentesis Finding(s): 425 mL fluid removed. Post procedure CXR shows resolution of pleural effusion and tiny right apical pneumothorax. Will repeat CXR to confirm stability in one hour. Inf/Abcess present in the surg proc area at time of surgery?: No
--- NOTE | 2018-03-11 11:47 | ASMTCMCOM ---
CM Note CM Note Notes: Spoke with PA, Tyree, regarding patient's discharge plan. Tyree feels this patient will be more successful discharging to a SNF. Met with patient and family re: dispo options. Patient seemed very open to the idea of SNF - lives locally and will likely choose a facility in the area. Son was resistant to choosing a facility at this time and stated, "We will see how her health improves before making a decision." CM educated son on the importance of choosing a facility preet to avoid last minute planning - son states he agrees and will look through the SNF list today. Senior BB provided. PASRR completed in anticipation of SNF. CM will f/u on choice. Plan: SNF Date Signed: 03/11/2018 11:46 AM Electronically Signed By:Brunilda Campos RN
[2018-03-11] MEDS: TETRAHYDROZOLINE 0.05% 15 ML OPHT.BTL EACHEYE SCH (13:00)
--- NOTE | 2018-03-11 14:25 | ASMTCMCOM ---
CM Note CM Note Notes: CM spoke with pts family re: chosen SNF. Provided education and they requested we send referral to [facility]. CM completed referral and spoke with Jyoti. Jyoti will initiate auth and review referral. IZABELLA will follow. Plan: [facility] rehab once auth received Date Signed: 03/11/2018 02:24 PM Electronically Signed By:Brunilda Campos RN
--- NOTE | 2018-03-11 16:34 | ASMTCMCOM ---
CM Note CM Note Notes: Received a call from Jyoti at [facility] - auth has been rec'd. They should be able to accept patient as soon as Sunday, 03/12. CM will follow. Plan: [facility] Date Signed: 03/11/2018 04:33 PM Electronically Signed By:Brunilda Campos RN
[2018-03-11] MEDS: ASPIRIN 81 MG CHEWABLE TAB PO SCH (20:31)
[2018-03-11] MEDS: METOPROLOL TARTRATE 50 MG TAB PO SCH (20:31)
[2018-03-11] MEDS: ATORVASTATIN CALCIUM 10 MG TAB PO SCH (20:31)
[2018-03-12] MEDS: LEVOTHYROXINE 88 MCG TAB PO SCH (05:25)
--- NOTE | 2018-03-12 07:38 | SOAPPROG ---
SOAP Progress Note Assessment/Plan: Assessment/Plan: POD #5: CABGx3 (SIMMONS-LAD, SVG-OM1, SVG-PDA), EVH bilateral legs, open GSV right thigh CAD s/p CABGx3: stable, lopressor titrated from 12.5 to 25 BID, ASA 162, hold atorvastatin 2/2 elevated LFTs Post-operative atrial fibrillation - resolved, NSR, IV Amio completed, amio PO started but will be discontinued due to N/V and elevated LFTs Prerenal oliguria : resolved, Cr 0.9 BUN 33, pre-op wt 53.5, post-op wt 55, responded with one time dose of lasix, 1050/750/250 Post-operative back pain- improved, cont PRN tylenol, tramadol, and lido patch Acute hypoxic respiratory insufficiency: resolved, required multiple veaning attempts, extubated 03/08 Acute blood loss anemia with thrombocytopenia: stable, 1 prbc's transfused with appropriate hct response on 03/10 Leukocytosis: improved, secondary to surgery, afebrile Hyperchloremic hypernatremia: resolved, immediately post-op Aortic sclerosis: mild per ECHO, monitor Bilateral carotid artery stenosis: avoid hypotension Hypothyroidism: on Synthroid, continue Elevated LFTs - multifactorial with hepatic congestion and amiodarone. Stopped amiodarone PO. Post-operative right pleural effusion - large, US thoracentesis, evacuated 425 cc of fluid, post-IR CXR with residual RLL atelectasis Hypertension - no pre-op antihypertensives, cautious with BP control in the setting of carotid artery disease, keep <160 Disposition: Advance diet from full liquid to cardiac, continue ensure nourishment Pending [facility] approval DVT prophylaxis: SCDs, ambulation Arterial Line: removed CVL: removed Chest tubes: removed Wires: removed Subjective: IR thoracentesis evacuated 425 cc yesterday from right chest. Showered and feeling better. Objective: Vital Signs Temp Pulse Resp BP Pulse Ox 36.7 C 75 20 161/70 H 93 03/12/18 04:00 03/12/18 04:00 03/12/18 04:00 03/12/18 04:00 03/12/18 04:00 Laboratory Results 03/11/18 05:17 03/11/18 05:17 03/11/18 03/12/18 03/13/18 05:59 05:59 05:59 Intake Total 600 750 Output Total 950 6085 Balance -350 -1725 PT 14.3 SEC (12.0-15.0) 03/06/18 12:15 INR 1.09 (0.83-1.16) 03/06/18 12:15 General: NAD, sitting upright HEENT: MMM Cardiac: NSR, no m/r/g, no edema GI: soft, nt, nd : no medellin Incisions: sternum - c/d/i; right thigh - c/d/i - ecchymotic bilateral thighs Chest tubes: out Wires: out UOP: 1050/750/250 ICD10 Worksheet Patient Problems: Problems Problem Status Onset Acute blood loss anemia Acute Coronary artery disease Acute Paroxysmal atrial fibrillation Acute S/P CABG x 3 Acute ~03/07/18 Carotid artery disease Chronic
[2018-03-12] MEDS ORDERED: LISINOPRIL 5 MG TAB PO SCH (09:00)
[2018-03-12] MEDS: LIDOCAINE 4%/MENTHOL 1% PATCH TD SCH (09:19)
[2018-03-12] MEDS: PANTOPRAZOLE SODIUM 40 MG TAB PO SCH (09:20)
[2018-03-12] MEDS: TETRAHYDROZOLINE 0.05% 15 ML OPHT.BTL EACHEYE SCH (09:21)
[2018-03-12] MEDS: METOPROLOL TARTRATE 50 MG TAB PO SCH (09:21)
[2018-03-12 13:10] VITALS: BP 153/64
--- NOTE | 2018-03-12 14:09 | PDIAF ---
- Diagnosis Diagnosis: s/p CABG Code Status: Full Code - Medication Management Discharge Medications: electronically signed and located in the Home Medication List. PICC Care - Routine: N/A - Orders Services needed: Registered Nurse, Certified Solutions Architect, Master Benzol Operator , Physical Therapy, Occupational Therapy Isolation Type: None Diet Recommendation: cardiac -low fat low salt Diet Texture: Regular Texture Diet, Thin Liquids, Meds Whole w/Liquids Weigh Patient: daily Elder: No Additional Instructions: Discharge Instructions: Call [facility] cardiac rehab to enroll in phase 2 classes if not already arranged. Sternal precautions x 4 weeks. Avoid lifting > 10lbs with an outstretched arm. Avoid push/pull activities. No driving until cleared by surgery. Elevate low legs at rest. Avoid prolonged standing or dangling. Cleanse wounds once daily with soap and water. Avoid immersion (pool, hot tub, bath) until scabs off. Ok to leave all wounds open to air. Avoid creams or ointments until scabs fall off. Log daily vital signs once home: weight, heart rate, blood pressure, and pulse oximetry if on oxygen. Call [facility] for overnight weight gain > 2lbs, weekly gain > 5lbs or worsening leg swelling. Call [facility] for resting heart rate > 120 OR for systolic blood pressure consistently < 90 or > 140. Target oxygen saturation > 89%. Ok to use [id number] medications for bowel function. Chest x-ray Instructions: Please obtain a chest xray prior to surgical appointment. Chest x-rays dont require an appointment. Come to the Emergency Room entrance at the [facility] location. Sign in at the computer kiosk in the entryway. You will be given a number and may sit in the waiting area until called. You will be registered and directed to the Imaging desk on the 1st floor. This process can take up to an hour. Make sure you allow enough time before your appointment to have your x-ray taken. - Labs/Radiology LFT Date: 03/18/18 (Fax to [facility] ([phone]) attention: America Hernández) Imaging Orders: CXR at [facility] on 03/19 before surgical f/u - Follow Up Care Current Providers and Referrals: Sindi Senior MD [Primary Care Provider] - Isra Singh MD [Medical Doctor] - Shahid Vergara MD [Medical Doctor] - 03/19/18 1:30 pm
--- NOTE | 2018-03-12 14:52 | ASMTLACE ---
LACE Length of stay for Answers: 4-6 days current admission Acuity / Level of Answers: Yes Care: Did the patient have an inpatient admission? Comorbidities - select Answers: Coronary Artery Disease all that apply # of Emergency department Answers: 0 visits in the last 6 months Score: 9 Date Signed: 03/12/2018 02:50 PM Electronically Signed By:Genesis Salguero
--- NOTE | 2018-03-12 14:53 | ASMTDCNOTE ---
Case Management Discharge Discharge Order Complete? Answers: Yes Patient to Obtain Answers: Other Notes: [facility] Transportation Arranged Answers: Other Notes: [facility] will Pick (Date 03/12/2018 04:00 PM & Time) EMTALA Complete Answers: No Faxed Final Orders Answers: Yes Agency/Facility Transfer Answers: Yes Report Printed & Faxed to Receiving Agency Family Notified Answers: Yes Discharge Comments Notes: Pt d/cing to [facility]. Date Signed: 03/12/2018 02:52 PM Electronically Signed By:Genesis Salguero
--- NOTE | 2018-03-12 14:55 | PDDCSUM ---
Discharge Summary Discharge Summary: DATE OF ADMISSION: 03/06/18 DATE OF DISCHARGE: 03/12/18 DISPOSITION: [facility] PRINCIPAL ADMISSION DIAGNOSES (prior to OR 03/07): 1. Severe multivessel coronary artery disease with preserved EF 2. Aortic sclerosis, mild 3. Hypothyroidism 4. Moderate, bilateral carotid artery stenosis PRINCIPAL DISCHARGE DIAGNOSES: As above 1. Post-operative atrial fibrillation, resolved 2. Prerenal oliguria, resolved 3. Acute blood loss anemia 4. Elevated LFTs 5. Post-operative right pleural effusion s/p R thoracentesis 6. Hypertension, started ACEI 7. Post-operative nausea/vomiting, resolved PROCEDURE PERFORMED: 1. Left heart catheterization, coronary angiography, left ventriculogram on by Dr. Singh 2. CABG (SIMMONS-LAD, SVG-OM1, SVG-PDA), EVH bilateral legs with open harvest of the right thigh on 03/[address] Shabazz. 3. IR Right thoracentesis 03/11/18 with 425 cc evacuated HISTORY OF PRESENT ILLNESS: She presented to the hospital for left heart catheterization with Dr. Isra Singh on 03/06/18 after an abnormal stress test for stable chronic chest tighteness. LHC demonstrated severe, multivessel coronary artery with a preserved EF. Dr. Shabazz was asked to evaluate the patient regarding CABG. MEDICATIONS ON ADMISSION: Synthroid 88 mcg PO daily Atorvastatin 10 mg PO HS Aspirin 162 mg PO HS Visine 1 drop each eye daily ALLERGIES/SENSITIVITIES: NKDA CONSULTANTS: 1. Pulmonary/Critical Care Consultation Dr. Froilan Avlarado 2. Interventional Cardiology Dr. Isra Singh HOSPITAL COURSE: She underwent an uneventful CABG. She went to the ICU intubated and sedated. She required dopamine and IVF for support. She was extubated the following morning and weaned off vasopressors. She was transferred to the PCU on POD #1. She experienced atrial fibrillation with rapid ventricular in the 130s and was started on the amiodarone protocol. She returned to NSR after bolus. She had prerenal oliguria which required aggressive hydration and resolved. She required 1U PRBC for post op anemia. She also began to have post-operative nausea/vomiting. Her LFTs were elevated and her amiodarone was discontinued. She did develop a post-op effusion this required IR thoracentesis. She was discharged in good condition to SNF. DISCHARGE CLINICAL INFORMATION: Sternum grossly stable; Sternotomy CDI; Bilateral EVH sites & open right thigh incisions CDI HR 81 SBP 153/64. SpO2 92% RA Up 2 kg WBC 11.75, Hgb 9.9, HCT 29.4, Plt 117, Na 138 , K 4.5, Cr 0.9 DISCHARGE MEDICATIONS: As on admission with the following adjustments: CONTINUE these medications: 1. Levothyroxine 2. Aspirin 3. Visine DISCONTINUE these medications: 1. Atorvastatin (d/t elevated LFTs) NEW prescriptions: 1. Lopressor 50 mg PO BID 2. Lisinopril 10 mg PO daily 3. Tylenol PRN 4. Tramadol 50-100 mg PO q6hr PRN FOLLOW UP APPOINTMENTS: 1. CV surgery: with Dr. Shabazz at [facility] on 03/19/18 @ 13:30. 2. Cardiology: with Dr. Isra Singh at [facility] within 4-6 weeks. Appointment to be established during surgical visit. FOLLOW UP TESTING: CXR prior to surgical appointment. LFTs to be done at [facility] and faxed to [facility] attn: America Hernández.
[2018-03-13] MEDS ORDERED: LISINOPRIL 10 MG TAB PO SCH (09:00)
--- NOTE | 2018-03-13 10:06 | GOP ---
DATE OF OPERATION: 03/07/2018 SURGEON: Shahid Vergara MD BIOTECH PRODUCTION SPECIALIST: Kae Neumann, PAC. PREOPERATIVE DIAGNOSIS: Unstable angina with multivessel coronary artery disease. POSTOPERATIVE DIAGNOSIS: Unstable angina with multivessel coronary artery disease. PROCEDURE PERFORMED: 1. Triple vessel coronary artery bypass grafting with left internal mammary artery to the left anter ior descending, saphenous vein graft from aorta to M1, status post saphenous vein graft from aorta to posterior descending artery. 2. Bilateral endoscopic vein harvest. FINDINGS: INDICATIONS: The patient is a 78-year-old woman with progressive unstable angina. She underwent cor onary angiography revealing 3-vessel disease, and she was recommended to undergo surgical revasculari zation. DESCRIPTION OF PROCEDURE: The patient was taken to the operating room, placed on the operating table in the supine position. After the induction of general anesthesia and a single-lumen endotracheal t ube intubation, the patient was prepped and draped sterilely. A standard median sternotomy was perfo rmed, and the left internal mammary artery was taken down with electrocautery and hemoclips while sap henous vein was harvested ultimately from both legs due to poor quality of the vein. Ultimately, the patient was fully heparinized. The vein was harvested from the leg and found to be suitable. The l eft mammary was also suitable. After full heparinization, the patient was cannulated with a Sarns 8.0 soft flow aortic cannula as we ll as a dual stage venous right atrial cannula. Cardiopulmonary bypass was instituted. The distal v essels were inspected and marked for grafting. Next, a cross-clamp was applied. The heart was arres rosina with 1 L of [place] solution. First, the PDA was exposed, opened, and anastomosed end-to-side t o a vein graft using running 7-0 Prolene. The marginal branch of the circumflex was also exposed, op ened, and anastomosed end-to-side to a separate vein graft using running 7-0 Prolene. Lastly, the LA D was opened in its 3rd portion and anastomosed end-to-side to the left internal mammary artery again using running 7-0 Prolene. This was allowed to flow freely as the mammary was tacked to the epicard ium. Next, the cross-clamp was removed. A partial occlusion clamp was placed. The 2 vein grafts were eac h individually anastomosed end-to-side to the ascending aorta using running 6-0 Prolene. These were de-aired and then allowed to flow freely. Left, right, and mediastinal chest tubes were placed as we ll as 2 ventricular pacing wires. The patient was from cardiopulmonary bypass without diff iculty. Protamine was administered. The patient was decannulated. All the cannulation sites were d oubly secured with Prolene suture. After this, the heart was covered with pericardium and fat, and t he chest was closed with #6 stainless steel wires. Subcutaneous tissue and skin were closed with run shivani Vicryl suture. The patient tolerated the procedure well. /[id number]/MODL
--- NOTE | 2018-03-14 09:51 | ASDISCHSUM ---
Discharge Information Plan Status:SNF Medically Cleared to Leave:03/11/2018 Discharge Date:03/12/2018 04:36 PM D/C Disposition:Shelter Facility ADT D/C Disposition:Shelter Facility Projected Discharge Date:03/12/2018 11:00 AM Transportation at D/C:Wheelchair Van Discharge Delay Reason: Follow-Up Date:03/12/2018 11:00 AM Discharge Slot: Final Diagnosis: Placement Information Referral Type:*Long Term/SNF Referral ID:[facility]-[id number] Provider Name:[facility] Address 1:[address] Address 2: City:[place] Selection Factors: State:[place] Patient Contact Information Contact Name:ROZ Relationship:Son Address:[address] City:[place] Alternate Phone: State/Zip Code:[place] [address] Email: Financial Information Financial Class:Medicare Advantage Plans Primary Plan Desc:[facility] [facility] Primary Plan Number:[id number] Secondary Plan Desc: Secondary Plan Number: Assessment Information LACE LACE Length of stay for Answers: 4-6 days current admission Acuity / Level of Answers: Yes Care: Did the patient have an inpatient admission? Comorbidities - select Answers: Coronary Artery Disease all that apply # of Emergency department Answers: 0 visits in the last 6 months Score: 9 Date Signed: 03/12/2018 02:50 PM Electronically Signed By:Genesis Salguero [facility] CM Progress Note CM Note CM Note Notes: 03/07/2018 Case Management Note Pt admitted after cath procedure for planned open heart procedure today. Pt transferred from 2W to ICU after surgery. Case Management d/c needs are to be determined. Case Management will follow. Date Signed: 03/07/2018 12:21 PM Electronically Signed By:Sindi Velasquez RN [facility] Progress Note CM Note CM Note Notes: Patient is POD #1 CABG x3. She is stable and recovering well. PT/OT are recommending home independent or home w home care. CM will assess closer to d/c date. Patient lives with daughter and has many supportive family members. I ordered a hospital bed from [facility] (fax [phone]); the hard copy of the order is in patient's chart. Case Management will follow. Date Signed: 03/08/2018 12:48 PM Electronically Signed By:Fide Oviedo RN [facility] IZABELLA Progress Note CM Note CM Note Notes: I met with patient and brother to discuss d/c planning. The plan is currently TBD between HC and SNF. The family does not want to tell me their choices yet; there is an RESPIRATORY THERAPY INSTRUCTOR in the family who they'd like to consult with first. I did order a hospital bed from [facility] last week; they will contact the family tomorrow with information. Per cardiothoracic surgery, patient may d/c Monday 03/12. Case Management will follow. Date Signed: 03/10/2018 11:13 AM Electronically Signed By:Fide Oviedo RN [facility] IZABELLA Progress Note CM Note CM Note Notes: Spoke with PATyree, regarding patient's discharge plan. Tyree feels this patient will be more successful discharging to a SNF. Met with patient and family re: dispo options. Patient seemed very open to the idea of SNF - lives locally and will likely choose a facility in the area. Son was resistant to choosing a facility at this time and stated, "We will see how her health improves before making a decision." CM educated son on the importance of choosing a facility preet to avoid last minute planning - son states he agrees and will look through the SNF list today. Senior BB provided. PASRR completed in anticipation of SNF. CM will f/u on choice. Plan: SNF Date Signed: 03/11/2018 11:46 AM Electronically Signed By:Brunilda Campos RN [facility] IZABELLA Progress Note CM Note CM Note Notes: IZABELLA spoke with pts family re: chosen SNF. Provided education and they requested we send referral to [facility]. IZABELLA completed referral and spoke with Jyoti. Jyoti will initiate auth and review referral. IZABELLA will follow. Plan: [facility] rehab once auth received Date Signed: 03/11/2018 02:24 PM Electronically Signed By:Brunilda Campos RN [facility] CM Progress Note CM Note CM Note Notes: Received a call from Jyoti at [facility] - auth has been rec'd. They should be able to accept patient as soon as 03/12. CM will follow. Plan: [facility] Date Signed: 03/11/2018 04:33 PM Electronically Signed By:Brunilda Campos RN Case Management Discharge Plan Note Case Management Discharge Discharge Order Complete? Answers: Yes Patient to Obtain Answers: Other Notes: [facility] Medications Transportation Arranged Answers: Other Notes: [facility] Transport will Pick (Date 03/12/2018 04:00 PM & Time) JUAN Complete Answers: No Faxed Final Orders Answers: Yes Agency/Facility Transfer Answers: Yes Report Printed & Faxed to Receiving Agency Family Notified Answers: Yes Discharge Comments Notes: Pt d/cing to [facility] Date Signed: 03/12/2018 02:52 PM Electronically Signed By:Genesis Salguero Intervention Information
== END 2018-03-12 16:36 | DRG 234 ==
LOC: FCATH 12:02 → F2W 17:26 → F2N 03-07 10:19 → F2W 03-08 23:00 → UNDODISIN 03-12 14:21
PROVIDERS: ADMIT Thoracic Surgery (Cardiothoracic Vascular Surgery); ATTEND Thoracic Surgery (Cardiothoracic Vascular Surgery)
PROC: B41B1ZZ Fluoroscopy of Other Intra-Abdominal Arteries using Low Osmolar Contrast (ICD-10-PCS; 2018-03-06)
PROC: B2151ZZ Fluoroscopy of Left Heart using Low Osmolar Contrast (ICD-10-PCS; 2018-03-06)
PROC: 4A023N7 Measurement of Cardiac Sampling and Pressure, Left Heart, Percutaneous Approach (ICD-10-PCS; 2018-03-06)
PROC: B2111ZZ Fluoroscopy of Multiple Coronary Arteries using Low Osmolar Contrast (ICD-10-PCS; 2018-03-06)
PROC: 021109W Bypass Coronary Artery, Two Arteries from Aorta with Autologous Venous Tissue, Open Approach (ICD-10-PCS; principal; 2018-03-07 07:15)
PROC: 06BQ4ZZ Excision of Left Saphenous Vein, Percutaneous Endoscopic Approach (ICD-10-PCS; principal; 2018-03-07 07:15)
PROC: 06BP4ZZ Excision of Right Saphenous Vein, Percutaneous Endoscopic Approach (ICD-10-PCS; principal; 2018-03-07 07:15)
PROC: 30233N1 Transfusion of Nonautologous Red Blood Cells into Peripheral Vein, Percutaneous Approach (ICD-10-PCS; principal; 2018-03-07 07:15)
PROC: 5A1221Z Performance of Cardiac Output, Continuous (ICD-10-PCS; principal; 2018-03-07 07:15)
PROC: 02100A9 Bypass Coronary Artery, One Artery from Left Internal Mammary with Autologous Arterial Tissue, Open Approach (ICD-10-PCS; principal; 2018-03-07 07:15)
PROC: 0W993ZZ Drainage of Right Pleural Cavity, Percutaneous Approach (ICD-10-PCS; 2018-03-11)
DX: I25.110 Atherosclerotic heart disease of native coronary artery with unstable angina pectoris (principal); R06.89 Other abnormalities of breathing; I97.89 Other postprocedural complications and disorders of the circulatory system, not elsewhere classified; I48.0 Paroxysmal atrial fibrillation; J95.89 Other postprocedural complications and disorders of respiratory system, not elsewhere classified; J91.8 Pleural effusion in other conditions classified elsewhere; D62 Acute posthemorrhagic anemia; E87.6 Hypokalemia; E87.0 Hyperosmolality and hypernatremia; R73.9 Hyperglycemia, unspecified; D69.59 Other secondary thrombocytopenia; K91.89 Other postprocedural complications and disorders of digestive system; R11.2 Nausea with vomiting, unspecified; I65.23 Occlusion and stenosis of bilateral carotid arteries; I10 Essential (primary) hypertension; E03.9 Hypothyroidism, unspecified
CPT/HCPCS: 82435-PO; 82565-PO; 82947-PO; 83605-PO; 84132-PO; 84295-PO; 84520-PO; 85014-PO; 92507-GN; 92526-GN; 92610-GN; 97116-GP; 97161-GP; 97165-GO; 97530-GO; 97530-GP; 97535-GO; C1768; C1769; C1887; G8978-GP-CK; G8979-GP-CI; G8987-GO-CK; G8988-GO-CI; G8996-GN-CH; G8996-GN-CI; G8997-GN-CH; G8998-GN-CH; J0153; J0282; J0690; J1100; J1250; J1265; J1644; J1815; J1940; J2001; J2150; J2250; J2260; J2270; J2370; J2405; J2440; J2704; J2720; J2765; J2930; J3010; J3475; J3480; P9016; P9021; P9041; Q9967

== ENCOUNTER → 2018-03-19 | Outpatient (CLI) | payer OTHER | LOC: FIMAGING 12:30 | PROVIDERS: ATTEND Thoracic Surgery (Cardiothoracic Vascular Surgery) | DX: R91.8 Other nonspecific abnormal finding of lung field (principal); Z95.1 Presence of aortocoronary bypass graft; Z98.890 Other specified postprocedural states ==